=== PATIENT | male | born 2000 | race African-American/Black ===

== ENCOUNTER 2025-03-30 19:25 | Emergency (ER) | payer SELFPAY ==
[2025-03-30 19:30] VITALS: BP 156/85
[2025-03-30] MEDS: MOTRIN 600 MG PO (22:01)
--- NOTE | 2025-03-30 22:05 | ED.GENMED ---
History of Present Illness
General
Chief Complaint: Musculo-Skeletal Complaint
Time Seen by Provider: 03/30/25 20:56
History of Present Illness
History of Present Illness:
24-year-old male without any significant past medical history presenting to the emergency department with right wrist pain. Patient reports symptoms for the past week after he lifted a heavy box. Reports general pain to the wrist. Denies numbness
or tingling. Denies fever. Denies additional injuries. Denies additional acute medical complaint
Phy Exam
Physical Exam
Physical Exam:
General: Well-appearing, no clinical signs of dehydration, nontoxic and in no acute distress
HEENT: protecting airway
Neck: appears supple
CV: Normal heart rate
Resp: No accessory muscle use, no increased work of breathing
Abd: No distention
Extremities: No deformities, no swelling. No specific tenderness to the wrist joint. Range of motion grossly intact. No erythema or warmth. Sensation and pulses intact.
Neuro: alert, no focal neurologic deficit
: deferred
Rectal: deferred
Psych: Normal affect
Skin: Intact
Course
Orders/Labs/Results
Orders:
Orders
03/30/25 19:33
CR Wrist - Right Min 2 Views Urgent
Comment:
Reason For Exam: pain
03/30/25 21:51
Ibuprofen [Motrin] 600 mg PO NOW STA
Vital Signs
Initial and Last Documented VS:
Initial Vital Signs
Temp Pulse Resp BP Pulse Ox
98.9 F 78 16 156/85 100
03/30/25 19:30 03/30/25 19:30 03/30/25 19:30 03/30/25 19:30 03/30/25 19:30
Last Documented Vital Signs
Temp Pulse Resp BP Pulse Ox
98.9 F 78 16 156/85 100
03/30/25 19:30 03/30/25 19:30 03/30/25 19:30 03/30/25 19:30 03/30/25 19:30
MDM/Problems Addressed
MDM/Problems Addressed:
24-year-old male presenting for right wrist pain after lifting a heavy box. Vital signs are normal.
On exam, patient resting comfortably, no distress. Unremarkable examination of the right wrist without any swelling or deformity. No infectious findings. No neurovascular compromise. X-ray obtained prior to my assessment, without any evidence of
fracture or malalignment. Suspect musculoskeletal strain. Ultimately feel stable for discharge with continued outpatient supportive therapy. Patient placed in an Ottoniel bandage. Return precautions discussed and patient verbalized understanding.
*Critical Care Note
Total Time (30-74mins, 75-104mins- exclusive of procedures): Not Applicable
ED Attending Note
-
Portions of this chart may have been created with voice recognition software.� Occasional wrong word or��sound alike� substitutions may have occurred due to the inherent limitations of voice recognition software.
Discharge Plan
Departure
Patient Disposition: Home (Routine Discharge)
Date of Disposition: 03/30/25
Time of Disposition: 22:04
Patient with high blood pressure during this ER visit?: No
Condition: Good
Discharge Problem:
Right wrist pain
Instructions: Wrist Sprain ED
Referrals:
NONE,* [Family Provider] -
Activity Restrictions/Additional Instructions:
You were seen in the emergency department for wrist pain
You were found to have a normal x-ray without any evidence of broken bone or dislocation. You were placed in an Ottoniel bandage. Please continue to take ibuprofen or Tylenol as needed for pain.
Please follow-up closely with your primary care physician.
Return to the emergency department for any worsening of your symptoms, or any development of chest pain, difficulty breathing, abdominal pain with persistent vomiting and inability to tolerate food or liquid by mouth (concern for dehydration),
weakness, headache or confusion, fever greater than 100.4, or any additional symptoms that are concerning to you.
Thank you for choosing [facility].
Interventions
Interventions:
*Risk Screen - Suicide Last Done: 03/30/25 19:30
*General Assessment Last Done: 03/30/25 19:30
*Neglect/Abuse Screening Last Done: 03/30/25 19:30
*ED- Fall Risk Assessment Last Done: 03/30/25 19:30
*ED COVID-19 Vaccine History Last Done: 03/30/25 19:30
ED-Musculoskeletal Assessment Last Done: 03/30/25 20:11
Discharge Date and Time
Print Language: [id number]
== END 2025-03-30 22:10 | disposition home or self-care (01) ==
LOC: EMR 19:25
PROVIDERS: EMERGENCY PHYSICIAN Student in an Organized Health Care Education/Training Program
DX: M25.531 Pain in right wrist (principal); X50.0XXA Overexertion from strenuous movement or load, initial encounter
CPT/HCPCS: 99283; 73100